=== PATIENT | female | born 1995 | race Caucasian/White ===

== ENCOUNTER → 2025-04-19 | Outpatient (CLI) | payer OTHER | LOC: M PLAIMG 08:50 | PROVIDERS: ATTEND Otolaryngology | DX: R43.9 Unspecified disturbances of smell and taste (principal) ==

== ENCOUNTER → 2025-04-27 | Outpatient (CLI) | payer OTHER ==
[2025-04-27 09:25] VITALS: TEMP 98.4
[2025-04-27 10:07] VITALS: BP 106/64; O2SAT 100
== END ==
LOC: M WHCPRO 09:01
PROVIDERS: ATTEND Surgery
DX: N63.12 Unspecified lump in the right breast, upper inner quadrant (principal)